=== PATIENT | female | born 1960 | race Caucasian/White ===

== ENCOUNTER → 2016-09-25 | Outpatient (CLI) | payer BC, MEDICARE ==
[2016-09-25 13:14] LABS: HEMOGLOBIN 12.6 gm/dl (12.3-15.3); RED BLOOD COUNT 4.58 M/UL (4.00-5.10); WHITE BLOOD COUNT 7.3 K/UL (4.5-11.0)
[2016-09-25 13:24] LABS: BUN/CREATININE RATIO 13 (0-10)
== END ==
LOC: LAB 12:33
PROVIDERS: Nurse Practitioner Family
DX: C34.90 Malignant neoplasm of unspecified part of unspecified bronchus or lung (principal); R07.9 Chest pain, unspecified; Z90.2 Acquired absence of lung [part of]; R91.8 Other nonspecific abnormal finding of lung field
CPT/HCPCS: 36415; 71020; 80048; 85025; 85379

== ENCOUNTER → 2016-11-03 | Outpatient (CLI) | payer BC, MEDICARE | LOC: LBRF 11:29 | DX: R05 Cough (principal); C34.90 Malignant neoplasm of unspecified part of unspecified bronchus or lung; R91.8 Other nonspecific abnormal finding of lung field | CPT/HCPCS: 87015; 87070; 87116; 87205 ==

== ENCOUNTER 2020-08-18 03:16 | Emergency (ER) | payer MEDICARE | END 2020-08-18 03:21 | disposition E | LOC: ER1 03:16 | DX: I46.9 Cardiac arrest, cause unspecified (principal) | CPT/HCPCS: 92950; 99285; J0171; J0282; J1100; J1165; J1265; J1800 ==